=== PATIENT | female | born 1980 | race African-American/Black ===

== ENCOUNTER 2021-06-09 17:40 | Observation (INO) ==
[2021-06-09] MEDS ORDERED: methylPREDNISolone SOD SUC 125 MG/2 ML VIAL IV STA (21:16)
[2021-06-09] MEDS ORDERED: ALBUTEROL/IPRATROPIUM 3 ML NEB RESP TX STA (21:16)
[2021-06-09] MEDS ORDERED: MORPHINE 2 MG/1 ML SYRINGE IV STA (21:16)
[2021-06-09] MEDS ORDERED: NITROGLYCERIN 2% OINT 1 INCH/GM PACK TOP STA (21:16)
[2021-06-09] MEDS ORDERED: ONDANSETRON 4 MG/2 ML VIAL IV STA (21:16)
[2021-06-09] MEDS ORDERED: ASPIRIN 325 MG TABLET PO STA (21:16)
[2021-06-09 22:04] LABS: Basophils # 0.1 10*3/uL (0.0-0.2); Basophils % 0.3 % (0.0-0.8); Eosinophils % 0.2 % (0.00-10.9); Hematocrit 45.2 VOL% (35.7-47.0); Hemoglobin 14.4 GM/DL (12.0-16.0); Immature Granulocytes % 0.7 %; Immature Granulocytes Absolute 0.13 #; Lymphocytes # 2.1 10*3/uL (1.4-4.0); Lymphocytes % 10.8 % (21.3-54.2); Mean Corpuscular HGB Conc 31.9 GM/DL (32-36); Mean Corpuscular Volume 86.9 FL (87-102); Mean Platelet Volume 10.7 FL (9.6-12.0); Platelet Count 425 T/CUMM (130-400); Red Cell Distribution Width 15.5 % (9.3-17.3); White Blood Count 19.5 T/CUMM (4-12)
[2021-06-09 22:08] LABS: Bilirubin,Urine Negative (Negative); Blood, Urine Moderate mg/dL (Negative); Glucose,Urine (UA) Negative (Negative); Ketones,Urine Negative (Negative); Nitrite,Urine Negative (Negative); Protein,Urine 100 MG/DL; RBC,Urine 9 /HPF (0-4); Urine Appearance CLEAR (Clear); Urine Color Straw (Yellow); Urine Specific Gravity 1.008 (1.001-1.035); Urine Urobilinogen < 2.0 EU/DL (<2.0)
[2021-06-09 22:17] LABS: PT Patient Result 11.3 SECS (10.5-12.0)
[2021-06-09 22:39] LABS: Albumin 3.7 G/DL (3.4-5.0); Bilirubin,Total 0.7 MG/DL (0.20-1.00); Calcium 8.8 MG/DL (8.5-10.1); Osmolality,Calculated 274.5 MOS/KG (273-304); Potassium 3.3 MMOL/L (3.5-5.1); Total Protein 7.7 G/DL (6.4-8.2)
[2021-06-09] MEDS ORDERED: MAGNESIUM SULF RIDER 2 GM/50 ML PREMIX IV STA (22:52)
[2021-06-09] MEDS ORDERED: POTASSIUM CHLORIDE 20 MEQ TABLET PO STA (22:52)
[2021-06-10] MEDS ORDERED: GLUCAGON 1 MG VIAL IM PRN (00:10)
[2021-06-10] MEDS ORDERED: ONDANSETRON 4 MG/2 ML VIAL IV PRN (00:10)
[2021-06-10] MEDS ORDERED: hydrALAZINE 20 MG/1 ML VIAL IV PRN (00:10)
[2021-06-10] MEDS ORDERED: ACETAMINOPHEN 325 MG TABLET PO PRN (00:10)
[2021-06-10] MEDS ORDERED: ALBUTEROL/IPRATROPIUM 3 ML NEB RESP TX PRN (00:10)
[2021-06-10] MEDS ORDERED: DEXTROSE 50% 25 GM/50 ML SYRINGE IV PRN (00:10)
[2021-06-10] MEDS ORDERED: MAGNESIUM SULF RIDER 2 GM/50 ML PREMIX IV PRN (00:40)
[2021-06-10] MEDS ORDERED: POTASSIUM CHLORIDE RIDER 10 MEQ/100 ML PREMIX IV PRN (00:40)
[2021-06-10] MEDS ORDERED: MAGNESIUM SULF RIDER 4 GM/100 ML PREMIX IV PRN (00:40)
[2021-06-10 02:08] LABS: Barbiturates Screen,Urine Negative (Negative); Benzodiazepines Screen,Urine Negative (Negative); Cannabinoid Screen,Urine Negative (Negative); Opiate Screen,Urine Negative (Negative); Phencyclidine Screen,Urine Negative (Negative)
[2021-06-10 04:33] LABS: Basophils % 0.2 % (0.0-0.8); Hematocrit 41.7 VOL% (35.7-47.0); Hemoglobin 13.1 GM/DL (12.0-16.0); Immature Granulocytes % 0.7 %; Immature Granulocytes Absolute 0.13 #; Lymphocytes # 1.6 10*3/uL (1.4-4.0); Lymphocytes % 8.6 % (21.3-54.2); Mean Corpuscular HGB Conc 31.4 GM/DL (32-36); Mean Corpuscular Volume 87.1 FL (87-102); Mean Platelet Volume 10.7 FL (9.6-12.0); Monocytes % 0.7 % (1.7-12.7); Neutrophils % 89.8 % (38.7-73.9); Platelet Count 428 T/CUMM (130-400); Red Blood Count 4.79 MC/CUMM (3.8-5.5); Red Cell Distribution Width 15.4 % (9.3-17.3); White Blood Count 18.9 T/CUMM (4-12)
[2021-06-10 05:06] LABS: Osmolality,Calculated 274.7 MOS/KG (273-304); Potassium 4.2 MMOL/L (3.5-5.1); Risk Ratio 2.66; Thyroid Stimulating Hormone 0.529 uIU/ml (0.358-3.74); VLDL Cholesterol 10.6 MG/DL
[2021-06-10] MEDS ORDERED: PANTOPRAZOLE 40 MG TABLET PO SCH (09:00)
[2021-06-10] MEDS ORDERED: ASPIRIN EC 325 MG TABLET PO SCH (09:00)
[2021-06-10] MEDS ORDERED: MECLIZINE 25 MG TABLET PO SCH (15:00)
[2021-06-10 16:04] VITALS: BP 136/73
[2021-06-10] MEDS ORDERED: ENOXAPARIN 40 MG/0.4 ML SYRINGE SUBCUT SCH (21:00)
== END 2021-06-10 16:00 | disposition home or self-care (01) ==
LOC: N.EDINP 17:40 → N.ED 17:40 → N.EDINP 06-10 16:00
PROVIDERS: ADMIT Internal Medicine Geriatric Medicine; ATTEND Internal Medicine Geriatric Medicine